=== PATIENT | male | born 1985 | race Caucasian/White ===

== ENCOUNTER 2018-11-20 10:04 | Emergency (ER) | payer MEDICAID ==
[~2018-11-20] VITALS: Ht 157.5 cm; Wt 73.0 kg
[2018-11-20] MEDS ORDERED: IBUPROFEN 800MG TABLET PO ONE (11:30)
[2018-11-20 12:58] VITALS: BP 130/60
== END 2018-11-20 12:58 | disposition home or self-care (01) ==
LOC: ER 10:04
DX: F07.81 Postconcussional syndrome (principal); H57.12 Ocular pain, left eye; H53.8 Other visual disturbances; Y08.89XA Assault by other specified means, initial encounter; Y93.89 Activity, other specified; Y92.89 Other specified places as the place of occurrence of the external cause; Y99.8 Other external cause status
CPT/HCPCS: 99284

== ENCOUNTER 2021-07-12 18:34 | Emergency (ER) | payer MEDICAID | END 2021-07-12 19:21 | disposition left against medical advice (07) | LOC: ER 18:34 | DX: Z53.21 Procedure and treatment not carried out due to patient leaving prior to being seen by health care provider (principal) ==

== ENCOUNTER 2021-07-12 19:52 | Emergency (ER) | payer MEDICAID ==
[~2021-07-12] VITALS: Ht 157.5 cm; Wt 80.9 kg
[2021-07-12 21:00] VITALS: BP 116/61
== END 2021-07-12 23:33 | disposition home or self-care (01) ==
LOC: ER 20:17
DX: S01.511D Laceration without foreign body of lip, subsequent encounter (principal); X58.XXXD Exposure to other specified factors, subsequent encounter
CPT/HCPCS: 99281; Z7610

== ENCOUNTER 2024-07-11 08:37 | Emergency (ER) | payer MEDICAID, OTHER ==
[~2024-07-11] VITALS: Ht 165.1 cm; Wt 81.0 kg
[2024-07-11 08:40] VITALS: TEMP 98.2; O2SAT 95
[2024-07-11] MEDS ORDERED: MORPHINE SULFATE 4 MG/ML INJ (FOR IV/IM USE) IM ONE (09:00)
[2024-07-11] MEDS ORDERED: LIDOCAINE HCL 1% 20ML VIAL INFIL ONE (09:00)
[2024-07-11] MEDS ORDERED: TETANUS, DIPHTHERIA, PERTUSSIS VAC/PF 0.5ML (>10YR OLD) IM ONE (09:00)
[2024-07-11 10:43] LABS: HEMATOCRIT. 42.1 % (42.0-52.0); HEMOGLOBIN. 13.7 g/dL (14.0-18.0); MEAN CORPUSCULAR HEMOGLOBIN 27.9 pg (28.0-32.0); MEAN CORPUSCULAR HGB CONC 32.5 g/dL (31.0-37.0); MEAN CORPUSCULAR VOLUME 85.9 fL (80.0-94.0); MEAN PLATELET VOLUME 6.7 fl (7.4-10.4); PLATELET 235 x1000/uL (130-400); RED BLOOD CELL COUNT 4.91 mill/uL (4.7-6.1); RED CELL DISTRIBUTION WIDTH 14.7 % (11.6-14.6)
[2024-07-11 10:44] LABS: DIFFERENTIAL COMMENT 1
[2024-07-11 10:54] LABS: CARBON DIOXIDE 20 mEq/L (21-32); CHLORIDE 106 mEq/L (98-107); SODIUM 139 mEq/L (136-145)
[2024-07-11 10:55] LABS: CALCIUM 9.1 mg/dL (8.7-10.4)
[2024-07-11 10:59] LABS: CREATININE 0.8 mg/dL (0.6-1.3)
[2024-07-11 11:00] LABS: GLUCOSE 118 mg/dL (70-105); UREA NITROGEN BLOOD 11 mg/dL (9-23)
[2024-07-11 11:02] LABS: ALANINE AMINOTRANSFERASE 54 IU/L (10-49); ALBUMIN 4.5 g/dL (3.2-4.8); ASPARTATE AMINOTRANSFERASE 136 IU/L (<34); BILIRUBIN TOTAL 0.6 mg/dL (0.1-1.0); PROTEIN TOTAL 7.6 g/dL (6.0-8.3)
[2024-07-11 11:09] LABS: PLATELET ESTIMATE NORMAL
[2024-07-11 11:11] LABS: INR 0.9; PARTIAL THROMBOPLASTIN TIME 23.1 sec (23.4-31.0); PROTHROMBIN TIME 10.4 sec (9.6-11.0)
[2024-07-11] MEDS: MORPHINE SULFATE 4 MG/ML INJ (FOR IV/IM USE) IV ONE ×2 (11:23→12:36)
[2024-07-11] MEDS: ONDANSETRON HCL 4MG/2ML INJ IV ONE (11:24)
[2024-07-11] MEDS: TETANUS, DIPHTHERIA, PERTUSSIS VAC/PF 0.5ML (>10YR OLD) IM ONE (12:36)
[2024-07-11 14:30] VITALS: BP 150/92; PULSE 88; RESP 16; O2SAT 95
== END 2024-07-11 15:25 | disposition short-term general hospital (02) ==
LOC: ER 10:47
DX: S42.001A Fracture of unspecified part of right clavicle, initial encounter for closed fracture (principal); S09.90XA Unspecified injury of head, initial encounter; S22.31XA Fracture of one rib, right side, initial encounter for closed fracture; S22.079A Unspecified fracture of T9-T10 vertebra, initial encounter for closed fracture; J93.83 Other pneumothorax; F10.129 Alcohol abuse with intoxication, unspecified; Z98.890 Other specified postprocedural states; W17.89XA Other fall from one level to another, initial encounter; Y93.89 Activity, other specified; Y92.89 Other specified places as the place of occurrence of the external cause; Y99.8 Other external cause status
CPT/HCPCS: 80053; 83690; 85025; 85610; 85730; 86850; 86900; 86901; 36415; 73030; 70450; 72125; 71250; 74176; 90715; 93005; 90471; 96374; 96375; 96376; 99291; J2405; J2270; Z7610 ×2; A4606